=== PATIENT | female | born 1985 | race Hispanic/Latino ===

== ENCOUNTER 2017-04-27 09:21 | Observation (INO) | payer OTHER ==
[2017-04-27 10:17] LABS: Bilirubin Negative (Negative); Blood, Urine Negative (Negative); Clarity CLEAR (Clear); Glucose, Urine (Dipstick) Negative (Negative); Leukocyte Negative (Negative); Nitrite Negative (Negative); Protein, Urine (Dipstick) Negative (Neg-Trace); Specific Gravity, Urine 1.016 (1.002-1.036); Urobilinogen 0.2 mg/dL (0.2-1.0)
[2017-04-27 10:20] LABS: Pregnancy Test - Urine (BHCG) Negative (Negative); Pregu Control Background? CLEAR/WHITE (CLR/WHITE); Pregu Control Bar Appear? YES (CONTROL BAR); Specific Gravity 1.016 (1.002-1.036)
[2017-04-27 10:26] LABS: #Basophils 0.1 thou/uL (0.0-0.2); #Eosinphils 0.1 thou/uL (0.0-0.7); #Lymphocytes 2.7 thou/uL (1.20-3.40); #Monocytes 0.7 thou/uL (0.11-0.59); %Eosinophils 1.7 % (0.0-10.0); %Lymphocytes 35.2 % (21.0-51.0); %Monocytes 8.8 % (0.0-10.0); %Neutrophils 53.3 % (42.0-75.0); Hemoglobin 14.5 g/dL (12.0-16.0); Mean Corpuscular HGB CONC 31.9 g/dL (32.0-36.0); Mean Corpuscular Hemoglobin 32.8 pg (27.0-31.0); Mean Platelet Volume 6.5 fL (7.4-10.4); Platelet Count 347 thou/uL (130-400); RBC Distribution Width 12.2 % (11.5-14.5); Red Blood Cell (RBC) Count 4.41 mill/uL (4.20-5.40); White Blood Cell (WBC) Count 7.6 thou/uL (4.8-10.8)
[2017-04-27 10:29] LABS: Amphetamine Not Detected (NotDetected); Barbiturates Screen Not Detected (NotDetected); Benzodiazepine Screen Detected (NotDetected); Cocaine Metabolite Screen Not Detected (NotDetected); Medtox Control Line Valid? VALID (VALID); Medtox Reader # READER 1; Methadone Not Detected (NotDetected); Methamphetamine Not Detected (NotDetected); Opiate Screen Detected (NotDetected); Oxycodone Screen Not Detected (NotDetected); Phencyclidine (PCP) Not Detected (NotDetected); THC/Cannabinoid Screen Not Detected (NotDetected); Tricyclic Screen Not Detected (NotDetected)
[2017-04-27 10:43] LABS: ALT (SGPT) 17 U/L (8-55); AST (SGOT) 18 U/L (5-34); Alkaline Phosphatase 90 U/L (40-150); Anion Gap 11 mmol/L (10-20); BUN (Urea Nitrogen) 13 mg/dL (7.0-18.7); Bilirubin, Total 0.2 mg/dL (0.2-1.2); Calc. Creatinine Clearance 0 mL/min (70-130); Calcium 9.6 mg/dL (7.8-10.44); Carbon Dioxide 24 mmol/L (22-29); Chloride 108 mmol/L (98-107); Estimated GFR-MDRD Greater than 90; Globulin 3.2 g/dL (2.4-3.5); Glucose 75 mg/dL (70-105); Potassium 4.3 mmol/L (3.5-5.1); Protein, Total 7.2 g/dL (6.0-8.3); Sodium 139 mmol/L (136-145)
[2017-04-27 11:36] LABS: Acetaminophen Less than 6.0 mcg/mL (10.0-30.0); Alcohol Less than 10 mg/dL (Less than 10); Salicylate Less than 8.0 mg/dL (15.0-30.0)
--- NOTE | 2017-04-27 11:50 | CT ---
NONCONTRAST HEAD CT: HISTORY: Altered mental status. Dizziness. COMPARISON: None. TECHNIQUE: Noncontrast head CT is performed from the skull base to the skull vertex. FINDINGS: No parenchymal hemorrhage. No extraaxial hematoma. No midline shift. Basilar cisterns are patent. Brain volume, age appropriate. Cortical hernandez-white matter differentiation is preserved. Ventricles and sulci are patent and symmetric. The calvarium is intact. Adequate aeration of the sinuses and mastoid air cells. IMPRESSION: No acute intracranial process. POS: [facility]
[2017-04-27] MEDS ORDERED: Naloxone HCl 0.4 mg/ml Vial ONE (13:53)
[2017-04-27 15:04] LABS: Actual Bicarbonate (HCO3a) 24.4 mEq/L (22-26); Base Excess (BEa) -1.1 mEq/L (0 (+/-) 2.5); CO2 Tension 43.7 mmHg (35.0-45.0); Calcium, Ionized 1.3 mmol/L (1.12-1.30); Hematocrit-ABG 38.8 % (36.0-47.0); Hemoglobin (Hb) 12.7 g/dL (12.0-16.0); O2 Tension (PaO2) 110.2 mmHg (80.0-100.0); pH, Arterial 7.36 (7.35-7.45)
[2017-04-27 15:05] LABS: ALV-art Gradient 35.095 (0-20); Analyzer IN Cardio ER; Puncture Site RRA
[2017-04-27] MEDS ORDERED: HYDROcodone/Acetaminophen 10/325 mg Tablet PO PRN (16:48)
[2017-04-27] MEDS ORDERED: Mag-Al 1200 mg/1200 mg/30 ML UDCUP PO PRN (16:48)
[2017-04-27] MEDS ORDERED: hydrALAZINE 20 MG/ML VIAL SLOW IVP PRN (16:48)
--- NOTE | 2017-04-27 17:24 | HP ---
PRIMARY CARE PHYSICIAN: Richard Lowery M.D. PROFESSIONAL MODEL: Rom Yadav M.D. MANUFACTURING LEAD: Chuck Solomon M.D. CHIEF COMPLAINT: Dizzy and drowsy. HISTORY OF PRESENT ILLNESS: The history of present illness is taken primarily from the patient as we ll as from a friend who is at the bedside. Ms. Ahmadi is a 31-year-old female who has a history of m ixed connective tissue disorder and arthritis as well as atrial fibrillation, status post ablation. She was in her usual state of health until this morning. Initially she said she was having trouble b reathing and feeling dizzy. She says that her daughter checked on her because she was supposed to ta ke her daughter to school, but she had not gotten up to do this and her daughter was having trouble a rousing the patient. The patient's daughter then became panic and called a family friend and coworke r. The coworker came over and saw that the patient was very drowsy and brought her to the emergency room. In the emergency room initially, the patient was alert and oriented and answering questions, b ut then became progressively more drowsy as she was being interviewed by the ER physician. She admit becca to the ER physician that she was trying to get some rest and go to sleep last night and took 2 No rco as well as a Xanax, she took two of them, 1 mg tablet and Benadryl, and she initially told me she did not remember what she did yesterday, but then after I told her I spoke with ER physician, she re membered that she had told the ER physician this. Then she quickly says that this is what she normal ly takes and cannot see how this set of medications could make her drowsy. She also says she feels l jenae she "was being drugged" and there must be something else going on. The patient appears to light up and become much happier and interactive once her friend and daughter and another male friend came into the room to visit her in the ER. The patient also says that she has a history of thyroid cyst w ho Dr. Solomon was actually following and she was curious as to whether or not the cyst have worsened and what the status of these were. REVIEW OF SYSTEMS: CONSTITUTIONAL: Currently, patient has no fevers, chills, no night sweats, no we ight loss. HEENT: She denies any headache. She was initially feeling dizzy. There is no sore thro at, rhinorrhea, neck pain or adenopathy. PULMONARY: No hemoptysis, no cough, no wheezing. CARDIOVA SCULAR: She denies any chest pain. Currently, no shortness of breath, no PND, no orthopnea. GASTRO INTESTINAL: No abdominal pain, no nausea, no vomiting, no change in bowels. GENITOURINARY: No urin derrick frequency, hematuria, no hesitancy. NEUROLOGIC: No focal weakness, no numbness, no seizures. P SYCHIATRIC: The patient says that she does not have any depression. She denies any suicidal ideatio n. She says, "I wasn't trying to kill myself" when she took these medications and when asked why she started smoking, she says "I'm going to anyway, but I'm not trying to kill myself." PAST MEDICAL HISTORY: Significant for mixed connective tissue disorder and arthritis secondary to th at, generalized anxiety, insomnia, and atrial fibrillation. PAST SURGICAL HISTORY: She had right knee surgery and ablation. She is currently on a block study f or back pain. She also says she has a history of ankylosing spondylosis. ALLERGIES: No known drug allergies. SOCIAL HISTORY: She is a smoker. She smokes a half a pack of cigarettes a day, she says for the month. Denies any alcohol use. FAMILY HISTORY: Significant for arthritis, diabetes mellitus, hypertension, breast cancer, lung canc er and heart disease. MEDICATIONS: Include hydrocodone 10/325 q.i.d., Xanax 1 mg twice daily, meloxicam 15 mg daily, gabap entin 300 mg at bedtime, and mirtazapine 30 mg at bedtime. PHYSICAL EXAMINATION: GENERAL: Initially, she was drowsy and appeared to be hard to arouse, but then after I talked to her for few minutes, she became fully awake and able to answer questions completely. In fact, in the mi ddle of our interview, she said she had to go the bathroom and walked to the bathroom and back and th is was witnessed by myself. HEENT: Her pupils are equal, round, and reactive. Extraocular muscles are intact. Her sclerae are anicteric. Throat: There is no erythema, no exudates. NECK: No adenopathy, no bruits. LUNGS: Clear. There is no wheezing, no rales. CARDIOVASCULAR: She has a normal S1 and S2. No S3 or S4. No murmurs or clicks. No rubs. ABDOMEN: Soft, it is nontender, and nondistended. Positive for bowel sounds. There is no rebound o r guarding. EXTREMITIES: There is no clubbing, cyanosis, no edema. NEUROLOGIC: Neurologically, the exam is nonfocal. LABORATORY DATA: White blood cell count 7.6, hemoglobin 14.5, hematocrit is 45.4, and platelet count is 347. Sodium is 139, potassium 4.3, chloride is 108, CO2 is 24, BUN of 13, creatinine 0.65, and g lucose is 75. Urinalysis was essentially negative. Urine drug screen was positive for opiates as we ll as benzodiazepines. Blood gas; pH was 7.36, pCO2 is 43.7, pO2 was 110.2, AA gradient was 35.09. ASSESSMENT AND PLAN: This is a 31-year-old female that presents with altered mental status. The pat bebeto says that she was extremely drowsy and difficult to arouse. Her friend reports the same thing. Currently, the patient is wide awake. Apparently, the ER physician was trying to discharge her and had her in the emergency room for 4-5 hours trying to wait for her to wake up. She did not do this u ntil she found out she was going to be admitted and then suddenly is more alert. We will observe her overnight to make sure that there are no further episodes of drowsiness. We will check a thyroid ul trasound as well as thyroid function test. Monitor her on telemetry due to her history of atrial fib rillation and I suspect that she can be discharged tomorrow. All of her lab works are negative so fa r and I suspect that unfortunately this episode is either medication related or it could be related t o the desire for some form of secondary gain. I also explained to the patient that we will keep her on the medications and the dosages that were on the prescription bottles as she did seem to want to c hange her dose to Xanax 4 times a day is what she told me, but on the bottle, it is only twice a day and she also said that her doctor had increased gabapentin to 600 mg where on the bottle, it is only 300 mg. So, given that she came in with drowsiness, the medications will need to be continued as it is written on the bottles.
[2017-04-27 18:05] LABS: Free T4 (Free Thyroxine) 0.86 ng/dL (0.70-1.48); Thyroid Stimulating Hormone 0.701 uIU/mL (0.35-4.94)
[2017-04-27 18:18] VITALS: BMI 31.6
[2017-04-27] MEDS: Docusate 100 MG CAP PO SCH (20:35)
[2017-04-27] MEDS ORDERED: Gabapentin 100 MG CAP PO SCH (21:00)
[2017-04-27] MEDS ORDERED: Mirtazapine 30 MG TAB PO SCH (21:00)
[2017-04-27] MEDS ORDERED: ALPRAZolam 1 MG TAB PO SCH (21:00)
--- NOTE | 2017-04-27 22:01 | ULT ---
THYROID ULTRASOUND 04/27/17 COMPARISON: 12/15/15 HISTORY: Re-evaluate thyroid nodule/cyst. TECHNIQUE: Multiplanar hernandez scale sonographic imaging of the thyroid gland obtained. FINDINGS: The thyroid isthmus measures 5 mm in AP dimension, within normal limits. The right lobe measures 1.6 x 4.8 x 1.6 cm. There is a tiny hypoechoic nodule measuring in the 3-4 mm range within the inferior aspect of the right lobe. Superiorly within the right lobe there is a 3 mm hypoechoic nodule. The left lobe measures 1.4 x 4.6 x 1.8 cm. There is a mildly complex cystic nodule in the superior as pect of the left lobe of the thyroid gland measuring in the 3-4 mm range. In the inferior pole, there is a similar mildly complex hypoechoic nodule on the left measuring in the 3-4 mm range. No dominant solid suspicious nodule seen. IMPRESSION: Tiny hypoechoic nodules of doubtful clinical significance. POS: [facility]
[2017-04-28] MEDS: HYDROcodone/Acetaminophen 10/325 mg Tablet PO PRN ×3 (00:16→17:58)
[2017-04-28 03:49] LABS: #Basophils 0.1 thou/uL (0.0-0.2); #Eosinphils 0.2 thou/uL (0.0-0.7); #Monocytes 0.6 thou/uL (0.11-0.59); #Neutrophils 3.4 thou/uL (1.40-6.50); %Basophils 0.9 % (0.0-1.0); %Eosinophils 2.2 % (0.0-10.0); %Lymphocytes 41.7 % (21.0-51.0); %Monocytes 8.3 % (0.0-10.0); %Neutrophils 46.9 % (42.0-75.0); Mean Corpuscular HGB CONC 32.1 g/dL (32.0-36.0); Mean Corpuscular Hemoglobin 32.9 pg (27.0-31.0); Mean Platelet Volume 6.5 fL (7.4-10.4); Platelet Count 326 thou/uL (130-400); RBC Distribution Width 11.9 % (11.5-14.5); Red Blood Cell (RBC) Count 3.95 mill/uL (4.20-5.40); White Blood Cell (WBC) Count 7.2 thou/uL (4.8-10.8)
[2017-04-28 04:11] LABS: Anion Gap 8 mmol/L (10-20); BUN (Urea Nitrogen) 14 mg/dL (7.0-18.7); Calc. Creatinine Clearance 159 mL/min (70-130); Calcium 9.3 mg/dL (7.8-10.44); Carbon Dioxide 27 mmol/L (22-29); Chloride 107 mmol/L (98-107); Estimated GFR-MDRD Greater than 90; Glucose 94 mg/dL (70-105); Potassium 4.3 mmol/L (3.5-5.1); Sodium 138 mmol/L (136-145)
[2017-04-28] MEDS ORDERED: Meloxicam 15 MG TAB PO SCH (09:00)
--- NOTE | 2017-04-28 09:56 | PDOC.PN ---
- Subjective Encounter Start Date: 04/28/17 Encounter Start Time: 08:30 states she is still very sleepy and unstable on her feet. Has to hold onto things in order to get around - Objective Vital Signs & Weight: Vital Signs (12 hours) Temp Pulse Resp BP Pulse Ox 04/28/17 07:42 97.7 F 95 16 106/68 100 04/28/17 07:38 97.7 F 93 16 04/28/17 03:48 97.7 F 93 16 127/87 96 04/28/17 00:20 97.7 F 93 16 114/69 Weight Weight 190 lb 7 oz I&O: 04/27/17 04/28/17 04/29/17 06:59 06:59 06:59 Intake Total 720 240 Balance 720 240 Result Diagrams: 04/28/17 03:34 04/28/17 03:34 Phys Exam - Physical Examination Constitutional: NAD HEENT: PERRLA, moist MMs, sclera anicteric Neck: no nodes, no JVD, supple, full ROM Respiratory: no wheezing, clear to auscultation bilateral Cardiovascular: RRR, no significant murmur Gastrointestinal: soft, non-tender, no distention, positive bowel sounds Musculoskeletal: no edema, pulses present Neurological: non-focal, moves all 4 limbs lethargic and unsteady on feet Psychiatric: normal affect Skin: no rash, normal turgor, cap refill <2 seconds Dx/Plan (1) Lethargic Code(s): R53.83 - OTHER FATIGUE Status: Acute (2) Sedative abuse Code(s): F13.10 - SEDATIVE, HYPNOTIC OR ANXIOLYTIC ABUSE, UNCOMPLICATED Status : Acute - Plan cont current plan of care, plan discussed w/ family * . discussed plan with nurse holding all sedatives but will continue norco NO PAIN MEDS over night other than her norco as prescribed possibly home tmrw
[2017-04-28] MEDS: Docusate 100 MG CAP PO SCH ×2 (10:00→20:55)
[2017-04-28] MEDS: Enoxaparin Sodium 40 MG/0.4 ML SYRINGE SC SCH (10:00)
[2017-04-29] MEDS: Acetaminophen 325 MG TAB PO PRN ×3 (03:33→12:28)
[2017-04-29] MEDS: Docusate 100 MG CAP PO SCH (08:11)
[2017-04-29] MEDS: Enoxaparin Sodium 40 MG/0.4 ML SYRINGE SC SCH (08:13)
[2017-04-29] MEDS ORDERED: Lorazepam 2 MG/ML VIAL SLOW IVP SCH (10:00)
[2017-04-29 11:20] VITALS: BP 134/80; TEMP 97.8
--- NOTE | 2017-04-29 13:08 | MRI ---
BRAIN MRI WITHOUT CONTRAST: Date: 04/29/17 HISTORY: Dizziness. Generalized weakness, x1 day. COMPARISON: None. TECHNIQUE: Brain MRI is performed without intravenous Gadolinium administration. Multisequential, multiplanar im aging is performed. FINDINGS: No hemorrhage on the axial gradient echo sequence. Calvarium has a normal T1 marrow signal intensity. Midline brain parenchymal structures are unremarkable. Central arterial flow-voids are maintained. A bsent restricted diffusion. There is a single T2 and FLAIR white matter hyperintense focus in the lef t centrum semiovale. No associated restricted diffusion. Additional subtle left and right frontal sub cortical white matter T2 and FLAIR hyperintensities are noted. No associated restricted diffusion. Mi ld mucosal thickening of the sinuses. IMPRESSION: Nonspecific white matter hyperintensities involving the left and right frontal subcortical white arthur er and the left centrum semiovale. Correlate for demyelinating processes. Postcontrast imaging is rec ommended to exclude underlying enhancement. POS: [facility]
--- NOTE | 2017-04-30 00:29 | DIS ---
DISCHARGE DIAGNOSES: 1. Altered mental status due to sedatives. 2. Sedative dependence. HOSPITAL COURSE: White patient was in hospital, I thought that patient had initial imaging which did not show any acute findings that could explain her altered mental status. After reviewing her medic ations, the patient was found to be on multiple sedatives including opioid as well as benzodiazepines and so forth. By holding these medications, the patient's symptoms began to improve. She still com plained of some dizziness. Therefore we continued to hold her medications. There was some question as if this patient actually did have some dizziness as she kept complaining about dizzy spells at dif ferent times throughout the day and night. MRI was done to see if there is any organic cause that co uld explain her dizziness, but this came back negative. She was also found to have left the room las t night and escorted familiy members outside at which point the patient was gone for almost 30 minute s before coming back to her room. She did not require any assistance to get there or back. She did not notify any nurses at that time. This showed me that the patient could be safely discharged and t hat her dizziness was not completely true. At times during her stay, she was seen eating and playing with her phone or her iPad without any signs of dizziness or any signs that could suggest anything a s was going on other than the medications that brought her in initially. Due to these findings as we ll as negative imaging, I was comfortable discharging the patient home. I instructed her and educate d her on the importance of not taking his medications that are new to her as she stated. She can con tinue to take in [place] but the other medications such as benzodiazepines, Remeron and as such need to be held at this time and referred to see a primary care physician. I have adjusted her benzodiazepi ne which she takes twice a day at home. I have adjusted to once a day so that she can be slowly wean ed off and not going to withdrawals. The patient will be safely discharged home with family. All qu estions answered prior to discharge. DISCHARGE CONDITION: Much improved when she first came in. DISCHARGE ACTIVITY: As tolerated. DISCHARGE MEDICATIONS: Please see discharge medication list. DISPOSTION: To home. FOLLOWUP APPOINTMENTS: The patient will follow up with primary care physician in 1 week. DISCHARGE DIET: Regular diet. DISCHARGE PLAN: Discharge planning was greater than 30 minutes.
--- NOTE | 2017-05-19 10:42 | EKG ---
Test Reason : AMS Blood Pressure : / mmHG Vent. Rate : 086 BPM Atrial Rate : 086 BPM P-R Int : 142 ms QRS Dur : 080 ms QT Int : 376 ms P-R-T Axes : 044 020 016 degrees QTc Int : 449 ms Normal sinus rhythm Normal ECG Confirmed by GRAZYNA ALBERT M.D. ([id number]), fashion editor WON CORREA ([id number]) on 05/19/2017 10:42:21 AM Referred By: Confirmed By:GRAZYNA ALBERT M.D.
== END 2017-04-29 13:32 | disposition home or self-care (01) ==
LOC: ERS 09:21 → 2SW 16:50
PROVIDERS: ADMIT Internal Medicine; ATTEND Internal Medicine
DX: R41.82 Altered mental status, unspecified (principal); T42.6X5A Adverse effect of other antiepileptic and sedative-hypnotic drugs, initial encounter; M35.9 Systemic involvement of connective tissue, unspecified; M19.90 Unspecified osteoarthritis, unspecified site; F41.9 Anxiety disorder, unspecified; G47.00 Insomnia, unspecified; I48.91 Unspecified atrial fibrillation; M54.9 Dorsalgia, unspecified; M45.9 Ankylosing spondylitis of unspecified sites in spine; F17.210 Nicotine dependence, cigarettes, uncomplicated; Z79.1 Long term (current) use of non-steroidal anti-inflammatories (NSAID); Z79.899 Other long term (current) drug therapy; Z98.890 Other specified postprocedural states
CPT/HCPCS: 36415; 36416; 70450; 70551; 76536; 80048; 80053; 80306; 80307; 81003; 81025; 82805; 84439; 84443; 85025; 93005; 96361; 96372; 96374; 96375; G0378; J1650; J2060; J2310

== ENCOUNTER 2017-08-24 14:05 | Outpatient (CLI) | payer OTHER | END 2017-08-24 14:06 | disposition home or self-care (01) | LOC: BICMRI 14:05 | PROVIDERS: ATTEND Internal Medicine Rheumatology | DX: M45.0 Ankylosing spondylitis of multiple sites in spine (principal); M46.1 Sacroiliitis, not elsewhere classified | CPT/HCPCS: 72146 ==

== ENCOUNTER 2017-09-06 08:59 | Outpatient (CLI) | payer OTHER ==
--- NOTE | 2017-09-06 11:51 | MRI ---
LUMBAR SPINE MRI WITHOUT IV CONTRAST: Date: 09/06/17 HISTORY: 32-year-old female with history of low back pain and bilateral leg pain for several weeks. COMPARISON: 05/07/14. FINDINGS: Conus medullaris region is unremarkable terminating at L1. There are some mild ligament and facet hyp ertrophic changes of the lumbar spine. There is no evidence for focal disc herniation or protrusion. No associated canal, lateral recess, or foraminal stenosis. Stable appearance from prior study. IMPRESSION: Unremarkable lumbar spine MRI. No evidence for focal disc herniation or central canal, lateral recess , or foraminal stenosis. Unchanged from prior study. POS: [facility]
== END 2017-09-06 09:00 | disposition home or self-care (01) ==
LOC: MRI 08:59
DX: M45.0 Ankylosing spondylitis of multiple sites in spine (principal); M46.1 Sacroiliitis, not elsewhere classified
CPT/HCPCS: 72148

== ENCOUNTER 2017-10-02 10:34 | Day surgery (SDC) | payer OTHER ==
[2017-10-01 13:37] VITALS: BMI 29.8
[2017-10-02] MEDS ORDERED: Midazolam HCl 2 mg/2 ml Vial ONE (11:21)
[2017-10-02 11:45] LABS: Calc. Creatinine Clearance 176 mL/min (70-130); Estimated GFR-MDRD Greater than 90
--- NOTE | 2017-10-02 14:28 | MRI ---
BRAIN MRI WITH AND WITHOUT CONTRAST: Date: 10/02/17 HISTORY: Visual disturbance. Evaluate for multiple sclerosis. COMPARISON: None. TECHNIQUE: Brain MRI is performed with and without intravenous Gadolinium administration. Multisequential, multi planar imaging is performed. FINDINGS: No hemorrhage on the axial gradient echo sequence. No midline shift. Basilar cisterns are patent. Brain volume is age-appropriate. Cortical hernandez-white m atter differentiation is preserved. The ventricles and sulci are patent and symmetric. Adequate aeration of the sinuses and mastoid air cells. Central arterial flow-voids are maintained. There is T2 and FLAIR hyperintensity involving lesions al lizandro the left kaplan radiata, centrum semiovale, right centrum semiovale, and right and left temporal lobes. Some of the lesions do have associated enhancement. The largest T2 hyperintense lesion is note d in the right centrum semiovale measuring 1.0 cm. There is an associated 5.0 mm enhancing focus. Add itional enhancement is noted in a number of the lesions. Note, all of the lesions do not demonstrate associated enhancement. Though the overall distribution of these lesions is somewhat atypical for mul tiple sclerosis, there are a few lesions that are perpendicular to the ventricular system and may rep resent Alvarez's fingers. Given varying degrees of enhancement, demyelinating plaques due to multiple sclerosis is favored. Confirmation with laboratory analysis is recommended. IMPRESSION: Multifocal T2 hyperintense lesions, some of which do not have a distribution that is typical for mult iple sclerosis. Nevertheless, some of these lesions do demonstrate enhancement. Active demyelination is suspected. Clinical correlation with laboratory values is recommended. POS: [facility]
--- NOTE | 2017-10-02 14:29 | MRI ---
PRE AND POSTCONTRAST ENHANCED MRI OF CERVICAL SPINE: Date: 10/02/17 HISTORY: Gait abnormality. Difficulty walking for 2 months. FINDINGS: Pre and postcontrast enhanced MRI of cervical spine obtained. Images demonstrate no evidence of demye linating lesions seen in the cervical spine. Disc spaces are unremarkable. No evidence of disc hernia tions, spinal stenosis, or neural foraminal narrowing is seen. Spinal cord demonstrates no evidence o f lesions. Vertebral bodies are unremarkable. IMPRESSION: Normal pre and postcontrast enhanced MRI of the cervical spine. POS: [facility]
[2017-10-02] MEDS ORDERED: Morphine 4 MG/ML VIAL ONE (15:09)
[2017-10-02] MEDS ORDERED: HYDROcodone/Acetaminophen 5/325 mg Tablet ONE (15:54)
== END 2017-10-02 16:00 | disposition home or self-care (01) ==
LOC: SDC/OP 10:34
PROVIDERS: ATTEND Psychiatry & Neurology Neurology
DX: H53.9 Unspecified visual disturbance (principal); R26.9 Unspecified abnormalities of gait and mobility; R25.1 Tremor, unspecified; R20.2 Paresthesia of skin; R41.3 Other amnesia; G89.4 Chronic pain syndrome; F98.8 Other specified behavioral and emotional disorders with onset usually occurring in childhood and adolescence; G47.00 Insomnia, unspecified; I48.91 Unspecified atrial fibrillation; M35.1 Other overlap syndromes; Z79.1 Long term (current) use of non-steroidal anti-inflammatories (NSAID); Z79.899 Other long term (current) drug therapy
CPT/HCPCS: 36415; 70553; 72156; 82565; 96374; J2250; J2270

== ENCOUNTER 2017-10-22 09:16 | Day surgery (SDC) | payer OTHER ==
[2017-10-19 11:41] VITALS: BMI 30.7
[2017-10-22 09:43] LABS: BHCG - Serum Negative (NEGATIVE); Pregs Control Background? CLEAR/WHITE (CLR/WHITE); Pregs Control Bar Appear? YES (CONTROL BAR)
[2017-10-22 10:22] VITALS: TEMP 97.6
[2017-10-22 10:24] VITALS: BP 132/80
--- NOTE | 2017-10-22 14:04 | RAD ---
LUMBAR PUNCTURE WITH FLUOROSCOPIC GUIDANCE: Date: 10/22/17 HISTORY: Gait abnormality, possible multiple sclerosis. FINDINGS: Informed consent obtained prior to the procedure. [employer] imaging of the lumbar spine demonstrates norm al vertebral body height and alignment. Informed consent was obtained prior to the procedure. Skin overlying the lumbar spine was prepped and draped in the normal sterile fashion with the patient in the oblique prone position. Skin overlying the L3-4 level was anesthetized with 1% buffered lidoc dilshad. With intermittent fluoroscopic guidance, a 22 gauge spinal needle was advanced into the thecal sac and removal of stylette yields clear cerebrospinal fluid. Opening pressure is approximately 10 cm of water. Approximately 11 mL of clear CSF was obtained and send to the laboratory for assessment. Needle was r emoved. The patient tolerated the procedure well. Exposure Data: 0.4 minutes of fluoroscopic time, 61.7 mGy*cm^2. IMPRESSION: Successful lumbar puncture with fluoroscopic guidance. POS: [facility]
== END 2017-10-22 12:40 | disposition home or self-care (01) ==
LOC: RAD 09:16
PROVIDERS: ATTEND Psychiatry & Neurology Neurology
PROC: 00JU3ZZ Inspection of Spinal Canal, Percutaneous Approach (ICD-10-PCS; principal; 2017-10-22)
DX: R26.9 Unspecified abnormalities of gait and mobility (principal); H53.9 Unspecified visual disturbance; R25.1 Tremor, unspecified; R20.2 Paresthesia of skin; R41.3 Other amnesia; Z79.899 Other long term (current) drug therapy
CPT/HCPCS: 36415; 62270; 84703

== ENCOUNTER 2018-02-25 12:12 | Outpatient (CLI) | payer OTHER ==
--- NOTE | 2018-02-26 09:24 | EEG ---
Referring Physician: DR. EILEEN MCCLURE EEG # [id number] TEST TYPE: ROUTINE OUTPATIENT REPORT: AN EEG USING THE INTERNATIONAL TEN-TWENTY SYSTEM OF ELECTRODE PLACEMENT WAS PERFORMED. The waking background is a 10 hertz alpha frequency. The patient remained awake throughout the study. Hyperventilation and photic stimulation were unremarkable. No epileptiform features were seen. IMPRESSION: NORMAL AWAKE EEG. Plant Maintenance Technician: TYLOR Standpipe Tender: EEG.LAUREN ANDRADE
== END 2018-02-25 12:13 | disposition home or self-care (01) ==
LOC: EEG 12:12
PROVIDERS: ATTEND Psychiatry & Neurology Neurology
DX: R55 Syncope and collapse (principal)
CPT/HCPCS: 95816

== ENCOUNTER 2018-04-16 11:33 | Emergency (ER) | payer OTHER ==
[2018-04-16] MEDS ORDERED: Iopamidol 370 76% 100 ML VIAL ONE (12:02)
[2018-04-16 12:11] LABS: #Lymphocytes 1.7 thou/uL (1.20-3.40); #Monocytes 0.4 thou/uL (0.11-0.59); #Neutrophils 5.6 thou/uL (1.40-6.50); %Basophils 0.6 % (0.0-1.0); %Eosinophils 0.2 % (0.0-10.0); %Lymphocytes 21.8 % (21.0-51.0); %Monocytes 5.6 % (0.0-10.0); %Neutrophils 71.8 % (42.0-75.0); Hemoglobin 13.8 g/dL (12.0-16.0); Mean Corpuscular HGB CONC 33.5 g/dL (32.0-36.0); Mean Corpuscular Hemoglobin 31.8 pg (27.0-31.0); Mean Corpuscular Volume 94.8 fL (78.0-98.0); Mean Platelet Volume 6.8 fL (7.4-10.4); Platelet Count 323 thou/uL (130-400); RBC Distribution Width 11.3 % (11.5-14.5); Red Blood Cell (RBC) Count 4.35 mill/uL (4.20-5.40); White Blood Cell (WBC) Count 7.7 thou/uL (4.8-10.8)
[2018-04-16 12:37] LABS: ALT (SGPT) 49 U/L (8-55); AST (SGOT) 44 U/L (5-34); Albumin 4.1 g/dL (3.5-5.0); Alkaline Phosphatase 77 U/L (40-150); Anion Gap 14 mmol/L (10-20); BUN (Urea Nitrogen) 15 mg/dL (7.0-18.7); Bilirubin, Total 0.7 mg/dL (0.2-1.2); Calc. Creatinine Clearance 0 mL/min (70-130); Calcium 9.2 mg/dL (7.8-10.44); Carbon Dioxide 19 mmol/L (22-29); Chloride 109 mmol/L (98-107); Estimated GFR-MDRD Greater than 90; Globulin 3.2 g/dL (2.4-3.5); Glucose 106 mg/dL (70-105); Lipase 11 U/L (8-78); Potassium 3.4 mmol/L (3.5-5.1); Protein, Total 7.3 g/dL (6.0-8.3); Sodium 139 mmol/L (136-145)
[2018-04-16] MEDS ORDERED: Ondansetron ODT 4 MG TAB ONE (12:41)
[2018-04-16 12:53] LABS: Bilirubin Small (Negative); Blood, Urine Trace (Negative); Glucose, Urine (Dipstick) Negative (Negative); Leukocyte Negative (Negative); Nitrite Negative (Negative); Protein, Urine (Dipstick) Trace mg/dL (Neg-Trace)
[2018-04-16 12:54] LABS: Clarity CLEAR (Clear)
[2018-04-16 12:55] LABS: Pregnancy Test - Urine (BHCG) Negative (Negative); Pregu Control Background? CLEAR/WHITE (CLR/WHITE); Pregu Control Bar Appear? YES (CONTROL BAR); Specific Gravity 1.037 (1.002-1.036); Specific Gravity, Urine 1.037 (1.002-1.036)
[2018-04-16] MEDS ORDERED: Metoclopramide HCl 10 MG/2 ML VIAL ONE (13:23)
[2018-04-16] MEDS ORDERED: Dicyclomine 20 MG TAB ONE (13:23)
[2018-04-16] MEDS ORDERED: Pantoprazole 40 MG VIAL ONE (13:23)
[2018-04-16] MEDS ORDERED: Ketorolac Tromethamine 30 MG/ML VIAL ONE (14:51)
[2018-04-16] MEDS ORDERED: Promethazine HCl 25 MG/ML VIAL ONE (14:51)
--- NOTE | 2018-04-16 15:14 | CT ---
ABDOMEN CT WITH CONTRAST PELVIC CT WITH CONTRAST: History: Abdominal pain. Tactile fever. Comparison: 06-23-14 FINDINGS: ABDOMEN CT: Dependent atelectatic changes. Normal heart size. No significant pericardial fluid. Visualized aorta is normal caliber. No fat stranding. Intra and extrahepatic portal vein is patent. Liver, spleen, pancreas, and adrenal glands demonstrate appropriate enhancement. No gastrohepatic, retrocrural or periportal lymphadenopathy. No mesenteric mass, lymphadenopathy, free air or free fluid. Symmetric enhancement of the kidneys. Bilaterally, no obstructed uropathy. Limited evaluation of the alimentary canal by lack of oral contrast. Gastric mucosa, duodenum, and mu ltiple normal caliber small bowel loops are noted. Ileocecal junction is normal. Scattered fecal material in a nondistended, nondilated colon. Occasional diverticulum. No evidence of diverticulitis. Appendix is slightly medial and cephalad to the cecal apex. No inflammation of the cecal apex is appr eciated currently. PELVIC CT: Uterus and adnexal structures are unremarkable. Urinary bladder is decompressed. No pelvic mass, lymp hadenopathy, free air or significant free fluid. No lytic or blastic lesions in the osseous structures. IMPRESSION: 1. No acute abnormality in the abdomen or pelvis. 2. Nonvisualization of the appendix. 3. No definite inflammation at the cecal apex. POS: [facility]
[2018-04-16 15:39] LABS: Amphetamine Not Detected (NotDetected); Barbiturates Screen Not Detected (NotDetected); Benzodiazepine Screen Detected (NotDetected); Cocaine Metabolite Screen Not Detected (NotDetected); Medtox Control Line Valid? VALID (VALID); Medtox Reader # READER 1; Methadone Not Detected (NotDetected); Methamphetamine Not Detected (NotDetected); Opiate Screen Not Detected (NotDetected); Oxycodone Screen Not Detected (NotDetected); Phencyclidine (PCP) Not Detected (NotDetected); THC/Cannabinoid Screen Not Detected (NotDetected); Tricyclic Screen Detected (NotDetected)
[2018-04-16] MEDS ORDERED: Lorazepam 2 MG/ML VIAL ONE (17:36)
== END 2018-04-16 17:43 | disposition home or self-care (01) ==
LOC: ERS 11:33
DX: R11.2 Nausea with vomiting, unspecified (principal); I48.91 Unspecified atrial fibrillation; F41.9 Anxiety disorder, unspecified; F17.210 Nicotine dependence, cigarettes, uncomplicated; Z79.899 Other long term (current) drug therapy
CPT/HCPCS: 36415; 74177; 80053; 80306; 81003; 81015; 81025; 83690; 85025; 96365; 96375; C9113; J1885; J2060; J2550; J2765; Q0162

== ENCOUNTER 2018-10-19 13:49 | Emergency (ER) | payer OTHER ==
--- NOTE | 2018-10-19 14:22 | RAD ---
Exam:Exam: Right foot 3 views HISTORY: Pain. Injury. COMPARISON: None FINDINGS: No fracture. No cortical irregularity. No periosteal reaction. Joint spaces are preserved. Lisfranc alignment is maintained. IMPRESSION: No fracture.
--- NOTE | 2018-10-19 14:22 | RAD ---
XR Ankle Rt 3 View STANDARD: 10/19/2018 1:59 PM CLINICAL INDICATION: Pain, injury, twisting mechanism COMPARISON: April 2007 FINDINGS: Fracture:No fracture. Arthropathy:None of significance. Incidental findings:None of significance. IMPRESSION: 1. No acute osseous abnormality.
== END 2018-10-19 14:25 | disposition home or self-care (01) ==
LOC: SCSER 13:49
DX: S93.401A Sprain of unspecified ligament of right ankle, initial encounter (principal); I48.91 Unspecified atrial fibrillation; G47.00 Insomnia, unspecified; F41.9 Anxiety disorder, unspecified; F17.210 Nicotine dependence, cigarettes, uncomplicated; X50.9XXA Other and unspecified overexertion or strenuous movements or postures, initial encounter

== ENCOUNTER 2018-10-24 20:00 | Emergency (ER) | payer OTHER ==
[2018-10-24] MEDS ORDERED: Ondansetron ODT 8 MG TAB ONE (20:13)
[2018-10-24] MEDS ORDERED: Promethazine HCl 25 MG/ML VIAL ONE (20:56)
[2018-10-24 21:02] LABS: Bilirubin Small (Negative); Blood, Urine Small (Negative); Clarity CLOUDY (Clear); Glucose, Urine (Dipstick) Negative (Negative); Leukocyte Negative (Negative); Nitrite Negative (Negative); Protein, Urine (Dipstick) 30 mg/dL (Neg-Trace); Urobilinogen 0.2 mg/dL (0.2-1.0); pH, Urine 5.5 (5.0-9.0)
[2018-10-24 21:04] LABS: Bacteria/HPF None Seen HPF (None Seen); Hyaline Casts/LPF 4-6 HYALINE CAST LPF (0-3 Hyaline); Pathc Cast-AUWi Flag 1.08 (0-2.49); WBC/HPF 0-3 HPF (0-3)
[2018-10-24 21:05] LABS: Pregnancy Test - Urine (BHCG) Negative (Negative); Pregu Control Background? CLEAR/WHITE (CLR/WHITE); Pregu Control Bar Appear? YES (CONTROL BAR); Specific Gravity 1.043 (1.002-1.036)
[2018-10-24 21:06] LABS: Specific Gravity, Urine 1.043 (1.002-1.036)
[2018-10-24 21:09] LABS: #Lymphocytes 1.4 thou/uL (1.20-3.40); #Monocytes 0.2 thou/uL (0.11-0.59); #Neutrophils 8.9 thou/uL (1.40-6.50); %Basophils 0.1 % (0.0-1.0); %Eosinophils 0.2 % (0.0-10.0); %Lymphocytes 12.9 % (21.0-51.0); %Monocytes 2.2 % (0.0-10.0); %Neutrophils 84.6 % (42.0-75.0); Hemoglobin 14.1 g/dL (12.0-16.0); Mean Corpuscular Hemoglobin 33.2 pg (27.0-31.0); Mean Corpuscular Volume 97.7 fL (78.0-98.0); Mean Platelet Volume 7.1 fL (7.4-10.4); Platelet Count 316 thou/uL (130-400); RBC Distribution Width 12.5 % (11.5-14.5); Red Blood Cell (RBC) Count 4.23 mill/uL (4.20-5.40); White Blood Cell (WBC) Count 10.5 thou/uL (4.8-10.8)
[2018-10-24 21:12] LABS: Crystals/HPF RARE CA OXALATE HPF (Negative)
[2018-10-24 21:29] LABS: ALT (SGPT) 19 U/L (8-55); AST (SGOT) 20 U/L (5-34); Albumin 4.8 g/dL (3.5-5.0); Alkaline Phosphatase 77 U/L (40-150); Anion Gap 18 mmol/L (10-20); BUN (Urea Nitrogen) 11 mg/dL (7.0-18.7); Bilirubin, Total 0.6 mg/dL (0.2-1.2); Calc. Creatinine Clearance 0 mL/min (70-130); Calcium 10.2 mg/dL (7.8-10.44); Carbon Dioxide 17 mmol/L (22-29); Chloride 104 mmol/L (98-107); Estimated GFR-MDRD 90; Globulin 3.1 g/dL (2.4-3.5); Glucose 171 mg/dL (70-105); Lipase 4 U/L (8-78); Potassium 3.4 mmol/L (3.5-5.1); Protein, Total 7.9 g/dL (6.0-8.3); Sodium 136 mmol/L (136-145)
== END 2018-10-24 23:20 | disposition home or self-care (01) ==
LOC: ERS 20:00
DX: R11.2 Nausea with vomiting, unspecified (principal); R19.7 Diarrhea, unspecified; R10.9 Unspecified abdominal pain; F41.9 Anxiety disorder, unspecified
CPT/HCPCS: 36415; 80053; 81003; 81015; 81025; 83690; 85025; 96372; J0500; J2550

== ENCOUNTER 2019-03-12 15:44 | Emergency (ER) | payer OTHER ==
[2019-03-12] MEDS ORDERED: Oxymetazoline HCl 0.05% (30 ML BOT) NS SCH (16:30)
[2019-03-12] MEDS ORDERED: HYDROcodone/Acetaminophen 10/325 mg Tablet ONE (16:54)
[2019-03-12] MEDS ORDERED: Ondansetron ODT 4 MG TAB ONE (17:30)
== END 2019-03-12 17:34 | disposition home or self-care (01) ==
LOC: ERS 15:44
DX: R04.0 Epistaxis (principal); I48.91 Unspecified atrial fibrillation; G35 Multiple sclerosis; F41.9 Anxiety disorder, unspecified
CPT/HCPCS: 99283; Q0162

== ENCOUNTER 2021-02-28 17:24 | Inpatient (IN) | payer BC ==
[~2021-02-28 17:24] MED LIST: Iopamidol-370 76% 500 ML 1 ML ONE
[2021-02-28] MEDS ORDERED: Fentanyl 100 MCG/2 ML VIAL ONE ×2 (18:01→19:23)
[2021-02-28] MEDS ORDERED: Ketorolac Tromethamine 30 MG/ML VIAL ONE (18:02)
[2021-02-28] MEDS ORDERED: Ondansetron PF 4 MG/2 ML Vial ONE ×2 (18:02→18:06)
[2021-02-28 18:42] LABS: #Lymphocytes 1.6 thou/uL (1.20-3.40); #Monocytes 0.7 thou/uL (0.11-0.59); #Neutrophils 12.8 thou/uL (1.40-6.50); %Basophils 0.1 % (0.0-1.0); %Eosinophils 0.1 % (0.0-10.0); %Lymphocytes 10.3 % (21.0-51.0); %Monocytes 4.7 % (0.0-10.0); %Neutrophils 84.8 % (42.0-75.0); Hemoglobin 15.7 g/dL (12.0-16.0); Mean Corpuscular HGB CONC 33.2 g/dL (32.0-36.0); Mean Corpuscular Hemoglobin 30.5 pg (27.0-31.0); Mean Corpuscular Volume 91.8 fL (78.0-98.0); Mean Platelet Volume 7.3 fL (7.4-10.4); Platelet Count 392 thou/uL (130-400); RBC Distribution Width 12.1 % (11.5-14.5); Red Blood Cell (RBC) Count 5.13 mill/uL (4.20-5.40); White Blood Cell (WBC) Count 15.1 thou/uL (4.8-10.8)
[2021-02-28 18:52] LABS: BHCG - Serum Negative (NEGATIVE); Pregs Control Background? CLEAR/WHITE (CLR/WHITE); Pregs Control Bar Appear? YES (CONTROL BAR)
[2021-02-28 19:08] LABS: ALT (SGPT) 14 U/L (8-55); AST (SGOT) 22 U/L (5-34); Albumin 5.1 g/dL (3.5-5.0); Alkaline Phosphatase 101 U/L (40-110); Anion Gap 24 mmol/L (10-20); BUN (Urea Nitrogen) 22 mg/dL (7.0-18.7); Bilirubin, Total 0.6 mg/dL (0.2-1.2); Calc. Creatinine Clearance 0 mL/min (70-130); Calcium 10.5 mg/dL (7.8-10.44); Carbon Dioxide 15 mmol/L (22-29); Chloride 101 mmol/L (98-107); Globulin 3.8 g/dL (2.4-3.5); Glucose 185 mg/dL (70-105); Potassium 4.2 mmol/L (3.5-5.1); Protein, Total 8.9 g/dL (6.0-8.3); Sodium 136 mmol/L (136-145)
[2021-02-28] MEDS ORDERED: Scopolamine 1.5 mg/72 hour Patch TOP SCH (19:15)
[2021-02-28 19:42] LABS: Actual Bicarbonate (HCO3v) 16 mEq/L (22-28); Analyzer IN Cardio ER; Base Excess -0.5 mEq/L (-2.0 to +3.0); Calcium, Ionized (venous) 0.97 mmol/L (1.16-1.32); Chloride (VBG) 101 mmol/L (98-106); Hemoglobin (Hb) 16.7 g/dL (11.7-15.5); Potassium (VBG) 6.58 mmol/L (3.70-5.30); Sodium 134.2 mmol/L (133-146); pH (venous) 7.67 (7.32-7.43)
[2021-02-28] MEDS ORDERED: Morphine 4 MG/ML VIAL ONE (21:06)
[2021-02-28] MEDS ORDERED: diphenhydrAMINE 50 MG/ML VIAL ONE (21:06)
[2021-02-28] MEDS ORDERED: Haloperidol Lactate 5 MG/ML VIAL ONE (21:08)
[2021-02-28 23:02] LABS: Bacteria/HPF None Seen HPF (None Seen); Bilirubin Negative (Negative); Blood, Urine Negative (Negative); Clarity Clear (Clear); Glucose, Urine (Dipstick) Normal (Negative); Ketone, Urine Greater than 150 mg/dL (Negative); Leukocyte Negative Leu/uL (Negative); Nitrite Negative (Negative); Protein, Urine (Dipstick) 100 mg/dL (Neg-Trace); Urobilinogen Normal mg/dL (Less than 2); pH, Urine 6.5 (5.0-9.0)
[2021-02-28 23:03] LABS: Specific Gravity, Urine Greater than 1.060 (1.002-1.036)
[2021-02-28 23:04] LABS: Pregnancy Test - Urine (BHCG) Negative (Negative); Pregu Control Background? CLEAR/WHITE (CLR/WHITE); Pregu Control Bar Appear? YES (CONTROL BAR); Specific Gravity Greater than 1.060 (1.002-1.036)
[2021-02-28] MEDS ORDERED: Acetaminophen 325 MG TAB PO PRN (23:04)
[2021-02-28 23:09] LABS: Amphetamine Not Detected (NotDetected); Barbiturates Screen Not Detected (NotDetected); Benzodiazepine Screen Detected (NotDetected); Cocaine Metabolite Screen Not Detected (NotDetected); Methadone Not Detected (NotDetected); Methamphetamine Detected (NotDetected); Opiate Screen Detected (NotDetected); Oxycodone Screen Not Detected (NotDetected); Phencyclidine (PCP) Not Detected (NotDetected); THC/Cannabinoid Screen Detected (NotDetected); Tricyclic Screen Not Detected (NotDetected)
[2021-02-28] MEDS ORDERED: Morphine 4 MG/ML VIAL SLOW IVP PRN ×2 (23:10→23:20)
[2021-02-28] MEDS ORDERED: Dextrose 5% in Water 1,000 ML IV PRN (23:11)
[2021-02-28] MEDS ORDERED: Dextrose 50% Abboject 50 ML SYRINGE SLOW IVP PRN (23:11)
[2021-02-28 23:36] VITALS: BMI 26.1
[2021-02-28 23:47] LABS: SARS-CoV-2 NAA Rapid Test Not Detected (NotDetected)
[2021-03-01] MEDS: Metoclopramide HCl 10 MG/2 ML VIAL IVP PRN ×3 (00:02→17:52)
[2021-03-01] MEDS: Sodium Chloride 0.9% 1,000 ML IV SCH ×4 (00:03→17:31)
[2021-03-01 00:28] LABS: Anion Gap 17 mmol/L (10-20); BUN (Urea Nitrogen) 20 mg/dL (7.0-18.7); Calc. Creatinine Clearance 120 mL/min (70-130); Calcium 8.9 mg/dL (7.8-10.44); Carbon Dioxide 17 mmol/L (22-29); Chloride 108 mmol/L (98-107); Glucose 118 mg/dL (70-105); Potassium 3.5 mmol/L (3.5-5.1); Sodium 138 mmol/L (136-145)
[2021-03-01 00:34] LABS: Hemoglobin A1c 4.7 % (4.0-6.0)
[2021-03-01] MEDS: Morphine 4 MG/ML VIAL SLOW IVP PRN ×3 (06:14→15:05)
[2021-03-01] MEDS: Promethazine HCl 25 MG in Sodium Chloride 0.9% 50 ML IVPB PRN (06:48)
[2021-03-01 07:03] LABS: #Lymphocytes 2.2 thou/uL (1.20-3.40); #Neutrophils 7.9 thou/uL (1.40-6.50); %Basophils 0.4 % (0.0-1.0); %Eosinophils 0.2 % (0.0-10.0); %Lymphocytes 19.4 % (21.0-51.0); %Monocytes 9.1 % (0.0-10.0); %Neutrophils 70.9 % (42.0-75.0); Hemoglobin 12.8 g/dL (12.0-16.0); Mean Corpuscular HGB CONC 33.5 g/dL (32.0-36.0); Mean Corpuscular Hemoglobin 30.9 pg (27.0-31.0); Mean Corpuscular Volume 92.2 fL (78.0-98.0); Platelet Count 312 thou/uL (130-400); RBC Distribution Width 11.9 % (11.5-14.5); Red Blood Cell (RBC) Count 4.16 mill/uL (4.20-5.40); White Blood Cell (WBC) Count 11.2 thou/uL (4.8-10.8)
[2021-03-01 07:33] LABS: Anion Gap 13 mmol/L (10-20); BUN (Urea Nitrogen) 18 mg/dL (7.0-18.7); Calc. Creatinine Clearance 128 mL/min (70-130); Calcium 8.6 mg/dL (7.8-10.44); Carbon Dioxide 21 mmol/L (22-29); Chloride 106 mmol/L (98-107); Glucose 119 mg/dL (70-105); Potassium 3.4 mmol/L (3.5-5.1); Sodium 137 mmol/L (136-145)
[2021-03-01] MEDS: Famotidine/PF 20 mg/2ml Vial SLOW IVP SCH ×2 (08:47→21:28)
[2021-03-01] MEDS: Ondansetron PF 4 MG/2 ML Vial IVP PRN ×2 (09:26→15:05)
[2021-03-01] MEDS: Ketorolac Tromethamine 30 MG/ML VIAL IVP PRN (21:59)
[2021-03-02] MEDS: Sodium Chloride 0.9% 1,000 ML IV SCH ×5 (00:12→23:37)
[2021-03-02 05:24] LABS: #Lymphocytes 3.7 thou/uL (1.20-3.40); #Monocytes 0.7 thou/uL (0.11-0.59); #Neutrophils 3.5 thou/uL (1.40-6.50); %Basophils 0.4 % (0.0-1.0); %Eosinophils 0.4 % (0.0-10.0); %Lymphocytes 46.2 % (21.0-51.0); %Monocytes 8.9 % (0.0-10.0); Hemoglobin 11.5 g/dL (12.0-16.0); Mean Corpuscular HGB CONC 34.4 g/dL (32.0-36.0); Mean Corpuscular Hemoglobin 32.3 pg (27.0-31.0); Mean Platelet Volume 6.9 fL (7.4-10.4); Platelet Count 256 thou/uL (130-400); RBC Distribution Width 11.9 % (11.5-14.5); Red Blood Cell (RBC) Count 3.57 mill/uL (4.20-5.40); White Blood Cell (WBC) Count 7.9 thou/uL (4.8-10.8)
[2021-03-02] MEDS: Ketorolac Tromethamine 30 MG/ML VIAL IVP PRN ×2 (05:25→14:59)
[2021-03-02] MEDS: Ondansetron PF 4 MG/2 ML Vial IVP PRN ×3 (05:29→20:38)
[2021-03-02 05:49] LABS: Anion Gap 12 mmol/L (10-20); BUN (Urea Nitrogen) 7 mg/dL (7.0-18.7); Calc. Creatinine Clearance 147 mL/min (70-130); Calcium 8.2 mg/dL (7.8-10.44); Carbon Dioxide 20 mmol/L (22-29); Chloride 111 mmol/L (98-107); Glucose 83 mg/dL (70-105); Potassium 3.2 mmol/L (3.5-5.1); Sodium 140 mmol/L (136-145)
[2021-03-02] MEDS: Metoclopramide HCl 10 MG/2 ML VIAL IVP PRN ×2 (06:06→15:58)
[2021-03-02] MEDS ORDERED: Potassium Chloride 20 MEQ TAB PO SCH (08:00)
[2021-03-02] MEDS: Famotidine/PF 20 mg/2ml Vial SLOW IVP SCH ×2 (08:46→20:38)
[2021-03-02] MEDS: Promethazine HCl 25 MG in Sodium Chloride 0.9% 50 ML IVPB PRN (09:01)
[2021-03-03] MEDS: Ondansetron PF 4 MG/2 ML Vial IVP PRN ×2 (02:59→09:12)
[2021-03-03] MEDS: Promethazine HCl 25 MG in Sodium Chloride 0.9% 50 ML IVPB PRN (05:09)
[2021-03-03] MEDS: Famotidine/PF 20 mg/2ml Vial SLOW IVP SCH (08:48)
[2021-03-03] MEDS: Ketorolac Tromethamine 30 MG/ML VIAL IVP PRN (08:48)
[2021-03-03 09:08] LABS: Anion Gap 17 mmol/L (10-20); BUN (Urea Nitrogen) 8 mg/dL (7.0-18.7); Calc. Creatinine Clearance 134 mL/min (70-130); Calcium 9.2 mg/dL (7.8-10.44); Carbon Dioxide 17 mmol/L (22-29); Chloride 111 mmol/L (98-107); Glucose 110 mg/dL (70-105); Potassium 3.1 mmol/L (3.5-5.1); Sodium 142 mmol/L (136-145)
[2021-03-03] MEDS ORDERED: ALPRAZolam 0.25 MG TAB PO PRN (10:25)
[2021-03-03 10:30] VITALS: BP 157/95; TEMP 98
[2021-03-03] MEDS: Sodium Chloride 0.9% 1,000 ML IV SCH (12:46)
[2021-03-03] MEDS: Metoclopramide HCl 10 MG/2 ML VIAL IVP PRN (12:58)
== END 2021-03-03 17:19 | disposition home or self-care (01) | DRG 918 ==
LOC: ERS 17:24 → ONC 22:26
PROVIDERS: ADMIT Student in an Organized Health Care Education/Training Program; ATTEND Internal Medicine
DX: T43.621A Poisoning by amphetamines, accidental (unintentional), initial encounter (principal); M35.1 Other overlap syndromes; E87.2 Acidosis; Z20.822 Contact with and (suspected) exposure to COVID-19; T40.711A Poisoning by cannabis, accidental (unintentional), initial encounter; E87.6 Hypokalemia; F15.10 Other stimulant abuse, uncomplicated; F12.10 Cannabis abuse, uncomplicated; G47.00 Insomnia, unspecified; G35 Multiple sclerosis; I48.91 Unspecified atrial fibrillation; E83.52 Hypercalcemia; R11.2 Nausea with vomiting, unspecified; Z79.899 Other long term (current) drug therapy; Z91.89 Other specified personal risk factors, not elsewhere classified
CPT/HCPCS: 36415; 36416; 71046; 71275; 74176; 76705; 80048; 80053; 80306; 81003; 81015; 81025; 82010; 82805; 83036; 83605; 83690; 83735; 83880; 84703; 85025; 87040; 93005; 96374; 96375; J1200; J1630; J1885; J2270; J2405; J2550; J2765; J3010; J7050; Q9967; S0028; U0002

== ENCOUNTER 2023-11-11 19:22 | Inpatient (IN) | payer BC ==
[2023-11-11 22:39] VITALS: BMI 29.9
[2023-11-12 08:17] LABS: #Basophils 0.03 10x3/uL (0.0-0.2); #Eosinphils Less than 0.03 10x3/uL (0.0-0.7); %Basophils 0.3 % (0.0-1.0); %Lymphocytes 2.3 % (21.0-51.0); %Monocytes 2.6 % (0.0-10.0); Hematocrit 36.7 % (36.0-47.0); Hemoglobin 11.5 g/dL (12.0-16.0); Mean Corpuscular HGB CONC 31.3 g/dL (32.0-36.0); Mean Corpuscular Volume 82.8 fL (78.0-98.0); Mean Platelet Volume 9.5 fL (7.4-10.4); Platelet Count 443 10x3/uL (130-400); RBC Distribution Width 14.8 % (11.5-14.5); Red Blood Cell (RBC) Count 4.43 mill/uL (4.20-5.40)
[2023-11-12 08:36] LABS: Anion Gap 18 mmol/L (10-20); BUN (Urea Nitrogen) 11 mg/dL (7.0-18.7); Calc. Creatinine Clearance 164 mL/min (70-130); Calcium 8.8 mg/dL (7.8-10.44); Carbon Dioxide 19 mmol/L (22-29); Chloride 104 mmol/L (98-107); Estimated GFR 120; Glucose 141 mg/dL (70-105); Potassium 3.5 mmol/L (3.5-5.1); Sodium 137 mmol/L (136-145)
[2023-11-13 05:55] LABS: Vancomycin, Random 13.2 ug/mL (See Comment)
[2023-11-13 12:43] LABS: CCP IgG Antibody 0.9 EliAU/mL (<7 Negative); Rheumatoid Factor IgA Antibody 1.8 IU/mL (<14 Negative); Rheumatoid Factor IgM Antibody 0.8 IU/mL (<3.5 Negative)
[2023-11-13 15:04] LABS: BF Color Colorless; Body Fluid Source Bronchial Washings; Clarity Clear (Clear); Tube # EDTA
[2023-11-13 15:52] LABS: BF WBC/Nonhematics Ct.-Manual 153 /cu.mm
[2023-11-13 15:53] LABS: BF RBC Count - Manual 560 /cu.mm
[2023-11-13 18:30] LABS: BF Segmented Neutrophils 6 %; Cell Count Non Hematic 65 %; Eosinophils 1 %; Lymphocytes 28 %
[2023-11-15 06:17] LABS: #Basophils Less than 0.03 10x3/uL (0.0-0.2); #Eosinphils Less than 0.03 10x3/uL (0.0-0.7); %Basophils 0.1 % (0.0-1.0); %Lymphocytes 1.8 % (21.0-51.0); %Monocytes 2.6 % (0.0-10.0); %Neutrophils 94.7 % (42.0-75.0); Hemoglobin 12.5 g/dL (12.0-16.0); Mean Corpuscular HGB CONC 31.3 g/dL (32.0-36.0); Mean Corpuscular Hemoglobin 26.4 pg (27.0-31.0); Mean Corpuscular Volume 84.4 fL (78.0-98.0); Mean Platelet Volume 9.4 fL (7.4-10.4); Platelet Count 416 10x3/uL (130-400); RBC Distribution Width 14.6 % (11.5-14.5); Red Blood Cell (RBC) Count 4.74 mill/uL (4.20-5.40)
[2023-11-15 06:38] LABS: Anion Gap 20 mmol/L (10-20); BUN (Urea Nitrogen) 10 mg/dL (7.0-18.7); Calc. Creatinine Clearance 156 mL/min (70-130); Calcium 9.2 mg/dL (7.8-10.44); Carbon Dioxide 22 mmol/L (22-29); Chloride 101 mmol/L (98-107); Estimated GFR 118; Glucose 140 mg/dL (70-105); Potassium 3.8 mmol/L (3.5-5.1); Sodium 139 mmol/L (136-145)
[2023-11-16 11:51] VITALS: BP 142/83; TEMP 98.1
[2023-11-16 16:15] LABS: Fungus Stain Final report (.)
[2023-11-16 16:15] LABS: Fungus Stain Final report (.)
== END 2023-11-16 15:40 | disposition home or self-care (01) | DRG 853 ==
LOC: T4-B 21:30
PROVIDERS: ADMIT Family Medicine; ATTEND Hospitalist
PROC: 0DB48ZX Excision of Esophagogastric Junction, Via Natural or Artificial Opening Endoscopic, Diagnostic (ICD-10-PCS; principal; 2023-11-12)
PROC: 0DB28ZX Excision of Middle Esophagus, Via Natural or Artificial Opening Endoscopic, Diagnostic (ICD-10-PCS; 2023-11-12)
PROC: 0DB98ZX Excision of Duodenum, Via Natural or Artificial Opening Endoscopic, Diagnostic (ICD-10-PCS; 2023-11-12)
PROC: 0DB78ZX Excision of Stomach, Pylorus, Via Natural or Artificial Opening Endoscopic, Diagnostic (ICD-10-PCS; 2023-11-12)
PROC: 0BBC8ZX Excision of Right Upper Lung Lobe, Via Natural or Artificial Opening Endoscopic, Diagnostic (ICD-10-PCS; 2023-11-13)
PROC: 0BBF8ZX Excision of Right Lower Lung Lobe, Via Natural or Artificial Opening Endoscopic, Diagnostic (ICD-10-PCS; 2023-11-13)
PROC: 0B9C8ZX Drainage of Right Upper Lung Lobe, Via Natural or Artificial Opening Endoscopic, Diagnostic (ICD-10-PCS; 2023-11-13)
PROC: 0B9F8ZX Drainage of Right Lower Lung Lobe, Via Natural or Artificial Opening Endoscopic, Diagnostic (ICD-10-PCS; 2023-11-13)
DX: A41.9 Sepsis, unspecified organism (principal); J15.9 Unspecified bacterial pneumonia; J96.01 Acute respiratory failure with hypoxia; B37.81 Candidal esophagitis; R11.2 Nausea with vomiting, unspecified; K29.70 Gastritis, unspecified, without bleeding; F17.290 Nicotine dependence, other tobacco product, uncomplicated; G89.29 Other chronic pain; M54.9 Dorsalgia, unspecified; G35 Multiple sclerosis; I48.91 Unspecified atrial fibrillation; F41.9 Anxiety disorder, unspecified; Z88.8 Allergy status to other drugs, medicaments and biological substances; Z79.899 Other long term (current) drug therapy
CPT/HCPCS: 36415; 80048; 80202; 82728; 83520; 85025; 85060; 85379; 86200; 87070; 87102; 87116; 87205; 87206; 88112; 88305; 88312; 89051; 94640; C9113; J0360; J0692; J1100; J1644; J2001; J2250; J2272; J2405; J2550; J2704; J2920; J3010; J3370; J3370-JW; J3490; J7620; S0028